=== PATIENT | male | born 1950 | race Caucasian/White ===

== ENCOUNTER 2017-09-12 09:58 | Inpatient (IN) | payer MEDICARE ==
[~2017-09-12] VITALS: Ht 180.3 cm; Wt 122.5 kg
[2017-09-12] MEDS ORDERED: SODIUM CHLORIDE 0.9% 1000ML 1,000 ML IV STA ×2 (10:07→10:34)
[2017-09-12] MEDS ORDERED: FAMOTIDINE 20 MG/2 ML VIAL IV STA (10:07)
[2017-09-12] MEDS ORDERED: DEXAMETHASONE SOD PHOS 10 MG/1 ML VIAL IV ONE (10:15)
[2017-09-12] MEDS ORDERED: DIPHENHYDRAMINE HCL INJ 50 MG/ML VIAL IV ONE (10:15)
[2017-09-12 10:54] LABS: BASOPHILS % 0.2 % (0.0-1.0); EOSINOPHILS # (AUTO) 2.6 (0.0-0.4); EOSINOPHILS % 19.6 % (0.0-6.0); HEMOGLOBIN 14.7 g/dL (14.0-18.0); LYMPHOCYTES # (AUTO) 0.8 (1.0-3.2); MEAN CORPUSCULAR HEMOGLOBIN 28.8 pg (28-32); MEAN CORPUSCULAR HGB CONC 33.4 g/dL (31-35); MEAN CORPUSCULAR VOLUME 86.1 fL (81-99); MONOCYTES # (AUTO) 0.5 (0.2-0.8); NEUTROPHILS % 69.1 % (38.7-80.0); PLATELET COUNT 154 x10e3/uL (140-360); RED BLOOD COUNT 5.11 x10e6/uL (4.3-5.7); RED CELL DISTRIBUTION WIDTH 13.9 % (11.7-14.4)
[2017-09-12 11:12] LABS: ALBUMIN 3.4 g/dL (3.5-5.0); CALCIUM 9.4 mg/dL (8.4-10.2); CREATININE, SERUM 1.92 mg/dL (0.72-1.25)
[2017-09-12] MEDS ORDERED: INSULIN REGULAR, HUMAN 100 UNIT/1 ML 3ML VIAL IV ONE (11:30)
[2017-09-12] MEDS ORDERED: ACETAMINOPHEN 325 MG TAB PO ONE (11:45)
[2017-09-12 12:08] LABS: BAND NEUTROPHILS % (MANUAL) 5 %; EOSINOPHILS % (MANUAL) 21 % (0-7); LYMPHOCYTES % (MANUAL) 5 % (19-48); MONOCYTES % (MANUAL) 3 % (3.4-9.0); MYELOCYTES % (MANUAL) 1 % (0-0); NEUTROPHILS % (MANUAL) 65 % (40-74)
[2017-09-12 12:09] LABS: RBC MORPHOLOGY COMMENT NORMAL
[2017-09-12 12:10] LABS: PLATELET ESTIMATE ADEQUATE; PLATELET MORPHOLOGY COMMENT NORMAL
[2017-09-12] MEDS ORDERED: GLIPIZIDE5 MG PO (12:10)
[2017-09-12] MEDS ORDERED: METOPROLOL SUCC50 MG PO (12:10)
[2017-09-12] MEDS ORDERED: LISINOPRIL10 MG PO (12:10)
[2017-09-12] MEDS ORDERED: MELOXICAM7.5 MG PO (12:10)
[2017-09-12] MEDS ORDERED: MORPHINE SULFAT30 M2 PO (12:10)
[2017-09-12] MEDS ORDERED: HYDROCHLOROTHIA25 MG PO (12:10)
[2017-09-12] MEDS ORDERED: METFORMIN HCL500 MG PO (12:10)
[2017-09-12] MEDS ORDERED: CYCLOBENZAPRINE10 MG PO (12:10)
[2017-09-12] MEDS ORDERED: CRESTOR10 MG PO (12:10)
--- NOTE | 2017-09-12 12:56 | Diagnostic Imaging Report ---
PROCEDURE: Frontal and lateral views of the chest. COMPARISON: None. INDICATIONS: ALLERGIC REACTION FINDINGS: Lines/tubes: None. Lungs: The lungs are well inflated and clear. There is no evidence of pneumonia or pulmonary edema. Pleura: There is no pleural effusion or pneumothorax. Heart and mediastinum: The heart and the mediastinum are normal. Bones: No acute bony abnormality. IMPRESSION: No acute cardiopulmonary disease. Dictated by: Dereje Trotter M.D. on 09/12/2017 at 12:59 Electronically approved by: Dereje Trotter M.D. on 09/12/2017 at 12:59
[2017-09-12] MEDS ORDERED: DEXTROSE 50% SYRINGE 50 ML IV PRN (13:00)
[2017-09-12] MEDS: SODIUM CHLORIDE 0.9% 1000ML 1,000 ML IV SCH ×2 (13:24→22:43)
[2017-09-12 13:43] LABS: CLARITY,URINE CLEAR (CLEAR); COLOR,URINE YELLOW (YELLOW)
[2017-09-12 13:44] LABS: BILIRUBIN,URINE NEGATIVE (NEGATIVE); KETONES,URINE 1+ (NEGATIVE); LEUKOCYTE ESTERASE ,URINE NEGATIVE (NEGATIVE); NITRITE,URINE NEGATIVE (NEGATIVE); PROTEIN,URINE DIPSTICK NEGATIVE (NEGATIVE); URINE UROBILINOGEN 0.2 mg/dL (0.2 - 1)
[2017-09-12 13:49] LABS: EPITHELIAL CELLS,URINE FEW /LPF
[2017-09-12 13:50] LABS: BACTERIA,URINE FEW /HPF; RBC,URINE 0-5 /HPF (0-5); WBC,URINE (MAN) 0-5 /HPF (0-5)
[2017-09-12 14:45] VITALS: BP 122/86
[2017-09-12] MEDS: INSULIN REGULAR, HUMAN 100 UNIT/1 ML 3ML VIAL SQ SCH ×2 (17:02→20:44)
[2017-09-12 19:24] VITALS: BP 122/86
[2017-09-12 20:00] VITALS: BP 136/66
[2017-09-12] MEDS ORDERED: CYCLOBENZAPRINE HCL 10 MG TAB PO PRN (20:15)
[2017-09-12] MEDS ORDERED: MORPHINE SULFATE 30 MG TAB ER PO PRN (20:15)
[2017-09-12] MEDS ORDERED: DIPHENHYDRAMINE HCL 25 MG CAP PO ONE (20:15)
[2017-09-12] MEDS ORDERED: DIPHENHYDRAMINE HCL 25 MG CAP PO NR (20:30)
[2017-09-12 20:42] VITALS: BP 136/66
[2017-09-12] MEDS: MORPHINE SULFATE 15MG TAB CR PO PRN (20:44)
[2017-09-12] MEDS: SIMVASTATIN 20 MG TAB PO SCH (20:44)
[2017-09-13] VITALS (9 sets, daily range): BP systolic 111–173; BP diastolic 59–86
[2017-09-13] MEDS: SODIUM CHLORIDE 0.9% 1000ML 1,000 ML IV SCH ×2 (06:20→17:50)
[2017-09-13] MEDS: MORPHINE SULFATE 15MG TAB CR PO PRN ×2 (06:21→21:08)
[2017-09-13 06:30] LABS: BASOPHILS % 0.4 % (0.0-1.0); EOSINOPHILS # (AUTO) 0.4 (0.0-0.4); EOSINOPHILS % 4.3 % (0.0-6.0); HEMATOCRIT 37.8 % (38.2-49.6); HEMOGLOBIN 12.7 g/dL (14.0-18.0); LYMPHOCYTES # (AUTO) 1.2 (1.0-3.2); LYMPHOCYTES % 12.7 % (18.0-39.1); MEAN CORPUSCULAR HEMOGLOBIN 28.4 pg (28-32); MEAN CORPUSCULAR HGB CONC 33.6 g/dL (31-35); MEAN CORPUSCULAR VOLUME 84.6 fL (81-99); MONOCYTES # (AUTO) 0.4 (0.2-0.8); MONOCYTES % 4.6 % (4.4-11.3); NEUTROPHILS # (AUTO) 7.5 (2.1-6.9); NEUTROPHILS % 77.5 % (38.7-80.0); PLATELET COUNT 148 x10e3/uL (140-360); RED BLOOD COUNT 4.47 x10e6/uL (4.3-5.7); RED CELL DISTRIBUTION WIDTH 13.7 % (11.7-14.4)
[2017-09-13 07:10] LABS: ANION GAP 14.1 mmol/L (8-16); BLOOD UREA NITROGEN 30 mg/dL (7-26); BUN/CREATININE RATIO 25 (6-25); CALCIUM 8.5 mg/dL (8.4-10.2); CARBON DIOXIDE 20 mmol/L (22-29); CHLORIDE 108 mmol/L (98-107); EST GLOMERULAR FILTRATION RATE > 60 ML/MIN (60-); GLUCOSE 259 mg/dL (74-118); POTASSIUM 4.1 mmol/L (3.5-5.1); SODIUM 138 mmol/L (136-145)
[2017-09-13] MEDS: GLIPIZIDE 5 MG TAB PO SCH ×2 (08:36→17:49)
[2017-09-13] MEDS: HYDROCHLOROTHIAZIDE 25 MG TAB PO SCH (08:37)
[2017-09-13] MEDS: MELOXICAM 7.5 MG TAB PO SCH (08:37)
[2017-09-13] MEDS: METFORMIN HCL 500 MG TAB PO SCH ×2 (08:37→17:49)
[2017-09-13] MEDS: INSULIN REGULAR, HUMAN 100 UNIT/1 ML 3ML VIAL SQ SCH ×4 (08:37→21:08)
[2017-09-13] MEDS: LISINOPRIL 20 MG TAB PO SCH (08:39)
[2017-09-13] MEDS: METOPROLOL SUCCINATE 50 MG TAB XL PO SCH (08:40)
[2017-09-13] MEDS ORDERED: SIMVASTATIN 40 MG TAB PO SCH (09:00)
[2017-09-13] MEDS ORDERED: LISINOPRIL 10 MG TAB PO SCH (09:00)
[2017-09-13] MEDS: METHYLPREDNISOLONE SOD SUCC 40 MG/ML VIAL IV SCH ×2 (14:11→21:56)
[2017-09-13] MEDS: SIMVASTATIN 20 MG TAB PO SCH (21:08)
[2017-09-14] MEDS: SODIUM CHLORIDE 0.9% 1000ML 1,000 ML IV SCH ×3 (02:22→23:45)
[2017-09-14 04:00] VITALS: BP 142/75
[2017-09-14] MEDS: METHYLPREDNISOLONE SOD SUCC 40 MG/ML VIAL IV SCH ×3 (06:02→20:53)
[2017-09-14] MEDS: MORPHINE SULFATE 15MG TAB CR PO PRN ×2 (06:02→15:07)
[2017-09-14 06:21] LABS: HEMOGLOBIN 12.4 g/dL (14.0-18.0); MEAN CORPUSCULAR HEMOGLOBIN 28.4 pg (28-32); MEAN CORPUSCULAR HGB CONC 32.6 g/dL (31-35); MONOCYTES % 5.1 % (4.4-11.3); NEUTROPHILS % 70.5 % (38.7-80.0); PLATELET COUNT 154 x10e3/uL (140-360); RED BLOOD COUNT 4.37 x10e6/uL (4.3-5.7); RED CELL DISTRIBUTION WIDTH 13.9 % (11.7-14.4)
[2017-09-14 06:22] LABS: BASOPHILS % 0.3 % (0.0-1.0); EOSINOPHILS # (AUTO) 0.1 (0.0-0.4); EOSINOPHILS % 0.6 % (0.0-6.0); LYMPHOCYTES # (AUTO) 2.2 (1.0-3.2); MONOCYTES # (AUTO) 0.5 (0.2-0.8); NEUTROPHILS # (AUTO) 6.9 (2.1-6.9)
[2017-09-14 06:54] LABS: ANION GAP 12.4 mmol/L (8-16); BLOOD UREA NITROGEN 29 mg/dL (7-26); BUN/CREATININE RATIO 27 (6-25); CALCIUM 8.6 mg/dL (8.4-10.2); CARBON DIOXIDE 22 mmol/L (22-29); CHLORIDE 107 mmol/L (98-107); CREATININE, SERUM 1.06 mg/dL (0.72-1.25); EST GLOMERULAR FILTRATION RATE > 60 ML/MIN (60-); GLUCOSE 286 mg/dL (74-118); POTASSIUM 4.4 mmol/L (3.5-5.1); SODIUM 137 mmol/L (136-145)
[2017-09-14 08:00] VITALS: BP 141/71
[2017-09-14 08:07] LABS: BAND NEUTROPHILS % (MANUAL) 5 %; LYMPHOCYTES % (MANUAL) 14 % (19-48); METAMYELOCYTES % (MANUAL) 1 % (0-0); MONOCYTES % (MANUAL) 6 % (3.4-9.0); NEUTROPHILS % (MANUAL) 66 % (40-74); PROMYELOCYTES % (MANUAL) 1 % (0-0)
[2017-09-14 08:08] LABS: ANISOCYTOSIS SLIGHT; PLATELET ESTIMATE ADEQUATE; PLATELET MORPHOLOGY COMMENT NORMAL; RBC MORPHOLOGY COMMENT NORMAL
[2017-09-14] MEDS: GLIPIZIDE 5 MG TAB PO SCH ×2 (08:21→16:30)
[2017-09-14] MEDS: METFORMIN HCL 500 MG TAB PO SCH ×2 (08:21→17:00)
[2017-09-14] MEDS: HYDROCHLOROTHIAZIDE 25 MG TAB PO SCH (08:21)
[2017-09-14] MEDS: LISINOPRIL 20 MG TAB PO SCH (08:21)
[2017-09-14] MEDS: METOPROLOL SUCCINATE 50 MG TAB XL PO SCH (08:21)
[2017-09-14] MEDS: MELOXICAM 7.5 MG TAB PO SCH (08:21)
[2017-09-14] MEDS: INSULIN REGULAR, HUMAN 100 UNIT/1 ML 3ML VIAL SQ SCH ×4 (08:22→21:00)
[2017-09-14 12:00] VITALS: BP 145/78
[2017-09-14 16:00] VITALS: BP 160/89
[2017-09-14 20:23] VITALS: BP 147/75
[2017-09-14] MEDS: SIMVASTATIN 20 MG TAB PO SCH (20:53)
[2017-09-15 00:36] VITALS: BP 153/82
[2017-09-15] MEDS: METHYLPREDNISOLONE SOD SUCC 40 MG/ML VIAL IV SCH ×2 (05:16→14:29)
[2017-09-15 05:37] VITALS: BP 131/73
[2017-09-15 08:00] VITALS: BP 164/91
[2017-09-15] MEDS: INSULIN REGULAR, HUMAN 100 UNIT/1 ML 3ML VIAL SQ SCH ×2 (08:00→12:00)
[2017-09-15] MEDS: METFORMIN HCL 500 MG TAB PO SCH (08:05)
[2017-09-15] MEDS: LISINOPRIL 20 MG TAB PO SCH (08:05)
[2017-09-15] MEDS: GLIPIZIDE 5 MG TAB PO SCH (08:05)
[2017-09-15] MEDS: HYDROCHLOROTHIAZIDE 25 MG TAB PO SCH (08:05)
[2017-09-15] MEDS: MELOXICAM 7.5 MG TAB PO SCH (08:05)
[2017-09-15] MEDS: METOPROLOL SUCCINATE 50 MG TAB XL PO SCH (08:05)
[2017-09-15] MEDS: MORPHINE SULFATE 15MG TAB CR PO PRN (08:06)
[2017-09-15] MEDS: SODIUM CHLORIDE 0.9% 1000ML 1,000 ML IV SCH (10:08)
[2017-09-15 12:00] VITALS: BP 154/80
[2017-09-15] MEDS ORDERED: INSULIN DETEMIR 100 UNIT/ML PEN SQ SCH (21:00)
--- NOTE | 2017-09-16 01:44 | Discharge Summary ---
HOSPITAL COURSE: A 67-year-old male with past medical history positive for diabetes, hypertension, hypercholesterolemia, apparently had an allergic reaction to Bactrim which was very intense. Patient feeling better. No shortness of breath. He wants to go home tomorrow. PHYSICAL EXAM VITAL SIGNS: Blood pressure 164/81, temperature 97.3, heart rate 65 per minute, respiratory rate 18 per minute, and oxygen saturation 98%. HEART: Regular rhythm. Normal S1, S2 sounds. LUNGS: Clear bilaterally. ABDOMEN: Soft. EXTREMITIES: No evidence of cyanosis or trauma. He has had a maculopapular rash which is slowly fading. On the BMP, sodium 137, potassium 4.4, chloride 107, CO2 22, BUN 29, creatinine 1.06, and glucose 286. On the CBC, white blood count 9.74, hemoglobin 12.4, hematocrit 38.0, and platelet count 154,000. AST 19, ALT 30, total bilirubin 0.6, and alkaline phosphatase 58. FINAL IMPRESSIONS 1. ALLERGIC REACTION TO BACTRIM. 2. Hypertension, uncontrolled. 3. Diabetes mellitus type 2. 4. Hypercholesterolemia. DISCHARGE MEDICATIONS: Patient going to be discharged on 1. Metoprolol 50 mg daily. 2. Medrol Dosepak to take as directed. 3. Hydrochlorothiazide 25 mg daily. 4. Lisinopril 30 mg daily. 5. Meloxicam 15 mg daily. 6. Simvastatin 10 mg daily. 7. Metformin 1000 mg twice a day. 8. Glipizide 10 mg twice a day. Patient is going to follow up with Dr. Mckeon, his primary care physician, in a week. LEANDER ASHLEY MD Job#: [id number] CF
[2017-09-16] MEDS ORDERED: LISINOPRIL 10 MG TAB PO SCH (09:00)
== END 2017-09-15 16:58 | disposition home or self-care (01) | DRG 607 ==
LOC: ER 10:23 → ERHOLD 13:46 → MED/SURG2 14:37
DX: L27.0 Generalized skin eruption due to drugs and medicaments taken internally (principal); N17.9 Acute kidney failure, unspecified; T37.0X5A Adverse effect of sulfonamides, initial encounter; L03.032 Cellulitis of left toe; Z79.84 Long term (current) use of oral hypoglycemic drugs; E11.65 Type 2 diabetes mellitus with hyperglycemia
CPT/HCPCS: 36415; 71046; 80048; 80053; 81001; 82948; 85025; 87086; 93005; 96374; 99284; J1100; J1200; J2920; J7030